=== PATIENT | female | born 1930 | race Caucasian/White ===

== ENCOUNTER 2016-10-08 22:52 | Observation (INO) | payer MEDICARE ==
[~2016-10-08] VITALS: Ht 160 cm; Wt 72.6 kg
[~2016-10-08 22:52] MED LIST: ACET325T9 PO; ALPR0.254 PO; ALPR1TAB2 PO; ASPI-482 PO; CYAN10005 PO; DOCU-27 PO; FERR325T72 PO; GABA-586 PO; LEVO50TA5 PO; MAGN400O4 PO; METO25TA9 PO; NITR100C PO; OXYC-323 PO; SENN-22 PO
[2016-10-08 23:38] LABS: BILIRUBIN,URINE SMALL (NEG); GLUCOSE,URINE NEGATIVE (NEG); NITRITE,URINE NEGATIVE (NEG); PROTEIN,URINE NEGATIVE (NEG-TRACE)
[2016-10-08 23:39] LABS: BASO % 1 % (0-3); EOS % 2 % (0-3); HEMATOCRIT 42.4 % (36.0-47.0); HEMOGLOBIN 13.9 g/dL (12.0-15.5); LYMPH # 0.8 x10^3/uL (1.0-4.8); LYMPH % 17 % (24-48); MEAN CORPUSCULAR HEMOGLOBIN 30 pg (25-35); MEAN CORPUSCULAR HGB CONC 33 g/dL (31-37); MEAN CORPUSCULAR VOLUME 91 fL (79-100); MONO % 6 % (0-9); NEUT % 75 % (31-73); PLATELET COUNT 139 x10^3/uL (140-400); RED BLOOD COUNT 4.65 x10^6/uL (3.50-5.40); RED CELL DISTRIBUTION WIDTH 15.4 % (11.5-14.5); WHITE BLOOD COUNT 4.8 x10^3/uL (4.0-11.0)
[2016-10-08 23:42] LABS: CALCIUM 9.2 mg/dL (8.5-10.1); CREATININE 0.9 mg/dL (0.6-1.0); GFR 59.2; POTASSIUM 3.7 mmol/L (3.5-5.1)
[2016-10-08 23:44] LABS: BACTERIA,URINE MANY /HPF (0-FEW); RBC,URINE OCC /HPF (0-2); SQUAMOUS EPITHELIAL CELL,UR MANY /LPF
[2016-10-08 23:48] LABS: ALBUMIN 3.4 g/dL (3.4-5.0); DIRECT BILIRUBIN 0.2 mg/dL (0.0-0.2); TOTAL BILIRUBIN 0.8 mg/dL (0.2-1.0); TOTAL PROTEIN 7.1 g/dL (6.4-8.2)
--- NOTE | 2016-10-09 00:08 | RAD ---
CT ABDOMEN/PELVIS Indication:severe abd pain after eating tonight, non contrast due to allergy, prior sent Reason: abdominal pain / Spl. Instructions: / History: Technique: Multiple contiguous axial images were obtained through the abdomen and pelvis. Coronal and sagittal reformations were created. Comparison:CT abdomen pelvis from 09/12/2004 Findings: The heart size is normal. The lung bases are clear. Evaluation of the abdominal viscera is limited in the absence of IV contrast.The liver and spleen are normal in size. The gallbladder is probably surgically absent. The pancreas, and adrenal glands are within normal limits. The kidneys are unremarkable. Calcifications superior pole of the left kidney. There is no abdominopelvic ascites. Abdominal aorta is normal in caliber with diffuse atheromatous calcification. The bowel loops are normal in caliber. The appendix is normal. Scattered stool throughout the colon. Diffuse sigmoid diverticulosis without acute diverticulitis. Urinary bladder is within normal limits. Bilateral hip arthroplasties causing streak artifacts limiting evaluation of pelvic structures. Postoperative changes of posterior spinal fusion involving L4 and L5 level. 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 Impression: No acute intra-abdominal or pelvic process detected. Spondylotic changes and multilevel disc degenerative changes Sigmoid diverticulosis without acute diverticulitis. Correlate clinically for constipation PQRS STATEMENT One or more of the following individualized dose reduction techniques were utilized for this study: 1.Automated exposure control 2.Adjustment of the mA and/or kV according to patient size 3.Use of iterative reconstruction technique Electronically signed by: Dominique Cerrato MD (Oct 09, 2016 00:07:05)
[2016-10-09] MEDS ORDERED: POLY17PO5 PO (00:18)
--- NOTE | 2016-10-09 00:18 | PHYS DOC ---
Past Medical History Past Medical History: Arthritis, GERD, Hypertension, TIA, UTI Additional Past Medical Histor: ANGINA BREAST CANCER DVT Past Surgical History: Cholecystectomy, Hysterectomy, Pacemaker Additional Past Surgical Histo: bladder lift, knee, back, pt poor historian, LUMPECTOMY Alcohol Use: None Drug Use: None Adult General Chief Complaint Chief Complaint: ABDOMINAL PAIN HPI HPI 86-year-old female presenting to the emergency department with generalized abdominal pain and dizziness when she stands up. Her pain is nonfocal, nonradiating mild worse prior to bowel movement and alleviated by having a bowel movement. Specific timing present. She also has associated lightheadedness when she stands up. She describes an episode where she had difficulty speaking for a few minutes and difficulty moving her legs. She denies it being unilateral. Currently she denies the symptoms. Review of Systems Review of Systems ROS negative for chest pain shortness of breath fevers chills cough. All other review of systems is negative unless otherwise noted in history of present illness. Allergies Allergies Allergies Coded Allergies Type Severity Reaction Last Updated Verified promethazine Allergy Severe Anxiety 08/30/15 Yes adhesive Allergy Intermediate Rash 08/31/15 Yes Iodinated Contrast Media - Oral and Adverse Reaction Intermediate FLUSHED 08/31 Yes Physical Exam Physical Exam Constitutional: Well developed, well nourished, no acute distress, non-toxic appearance. HENT: Normocephalic, atraumatic, bilateral external ears normal, oropharynx moist, no oral exudates, nose normal. [] Eyes: PERRLA, EOMI, conjunctiva normal, no discharge. Neck: Normal range of motion, no tenderness, supple, no stridor. [] Cardiovascular:Heart rate regular rhythm, no murmur [] Lungs & Thorax: Bilateral breath sounds clear to auscultation Abdomen: Soft nontender abdomen without rebound tenderness or guarding present. Negative McBurneys point. Negative Moreau sign. No ecchymosis present. Skin: Warm, dry, no erythema, no rash. Back: No tenderness, no CVA tenderness. [] Extremities: No tenderness, no cyanosis, no clubbing, ROM intact, no edema. [] Neurologic: Neuro exam: Mental status: Awake oriented and alert x3 Cranial nerves: Extraocular movements intact, eyebrows ayah bilaterally smile symmetric, uvula elevation, shoulder shrug intact, tongue protrusion normal DTRs: 2+ Sensation: equal and normal in all extremities Strength: 5/5 in upper and lower extremities bilaterally Psychologic: Affect normal, judgement normal, mood normal. [] Current Patient Data Vital Signs Vital Signs Date Time Temp Pulse Resp B/P Pulse Ox O2 Delivery O2 Flow Rate FiO2 10/09/16 00:27 82 16 182/75 96 Room Air 10/08/16 22:58 97.5 97.5 Lab Values Laboratory Tests Test 10/08/16 23:21 10/08/16 23:31 White Blood Count 4.8x10^3/uL (4.0-11.0) Red Blood Count 4.65x10^6/uL (3.50-5.40) Hemoglobin 13.9g/dL (12.0-15.5) Hematocrit 42.4% (36.0-47.0) Mean Corpuscular Volume 91fL (79-100) Mean Corpuscular Hemoglobin 30pg (25-35) Mean Corpuscular Hemoglobin Concent 33g/dL (31-37) Red Cell Distribution Width 15.4% (11.5-14.5) H Platelet Count 139x10^3/uL (140-400) L Neutrophils (%) (Auto) 75% (31-73) H Lymphocytes (%) (Auto) 17% (24-48) L Monocytes (%) (Auto) 6% (0-9) Eosinophils (%) (Auto) 2% (0-3) Basophils (%) (Auto) 1% (0-3) Neutrophils # (Auto) 3.6x10^3uL (1.8-7.7) Lymphocytes # (Auto) 0.8x10^3/uL (1.0-4.8) L Monocytes # (Auto) 0.3x10^3/uL (0.0-1.1) Eosinophils # (Auto) 0.1x10^3/uL (0.0-0.7) Basophils # (Auto) 0.0x10^3/uL (0.0-0.2) Sodium Level 143mmol/L (136-145) Potassium Level 3.7mmol/L (3.5-5.1) Chloride Level 108mmol/L (98-107) H Carbon Dioxide Level 29mmol/L (21-32) Anion Gap 6 (6-14) Blood Urea Nitrogen 11mg/dL (7-20) Creatinine 0.9mg/dL (0.6-1.0) Estimated GFR (Cockcroft-Gault) 59.2 Glucose Level 138mg/dL (70-99) H Lactic Acid Level 1.7mmol/L (0.4-2.0) Calcium Level 9.2mg/dL (8.5-10.1) Total Bilirubin 0.8mg/dL (0.2-1.0) Direct Bilirubin 0.2mg/dL (0.0-0.2) Aspartate Amino Transferase (AST) 28U/L (15-37) Alanine Aminotransferase (ALT) 21U/L (14-59) Alkaline Phosphatase 97U/L (46-116) Troponin I Quantitative < 0.017ng/mL (0.000-0.055) SV-Maj-R-Type Natriuretic Peptide 125pg/mL (0-449) Total Protein 7.1g/dL (6.4-8.2) Albumin 3.4g/dL (3.4-5.0) Lipase 135U/L (73-393) Thyroid Stimulating Hormone (TSH) 3.156uIU/mL (0.358-3.74) Urine Collection Type Unknown Urine Color Coby Urine Clarity Clear Urine pH 7.0 Urine Specific [employer] 1.015 Urine Protein Negativemg/dL (NEG-TRACE) Urine Glucose (UA) Negativemg/dL (NEG) Urine Ketones (Stick) Tracemg/dL (NEG) Urine Blood Negative (NEG) Urine Nitrite Negative (NEG) Urine Bilirubin Small (NEG) Urine Urobilinogen Dipstick 2.0mg/dL (0.2 mg/dL) Urine Leukocyte Esterase Small (NEG) Urine RBC Occ/HPF (0-2) Urine WBC 5-10/HPF (0-4) Urine Squamous Epithelial Cells Many/LPF Urine Bacteria Many/HPF (0-FEW) Urine Mucus Marked/LPF Laboratory Tests 10/08/16 23:21 Laboratory Tests 10/08/16 23:21 EKG EKG EKG shows sinus rhythm with a regular rate. [place] mildly leftward. Intervals within normal limits. ST segments congruent. [] Radiology/Procedures Radiology/Procedures [address] [place] [address] IMAGING REPORT Signed PATIENT: LILIA ZIMMERMAN ACCOUNT: [id number] : 1930 LOCATION: ER AGE: 86 SEX: F EXAM STATUS: REG ER ORD. PHYSICIAN: KARI LAKHANI MD REASON: abdominal pain PROCEDURE: ABDOMEN PELVIS WO CONTRAST CT ABDOMEN/PELVIS Indication:severe abd pain after eating tonight, non contrast due to allergy, prior sent Reason: abdominal pain / Spl. Instructions: / History: Technique: Multiple contiguous axial images were obtained through the abdomen and pelvis. Coronal and sagittal reformations were created. Comparison:CT abdomen pelvis from 09/12/2004 Findings: The heart size is normal. The lung bases are clear. Evaluation of the abdominal viscera is limited in the absence of IV contrast.The liver and spleen are normal in size. The gallbladder is probably surgically absent. The pancreas, and adrenal glands are within normal limits. The kidneys are unremarkable. Calcifications superior pole of the left kidney. There is no abdominopelvic ascites. Abdominal aorta is normal in caliber with diffuse atheromatous calcification. The bowel loops are normal in caliber. The appendix is normal. Scattered stool throughout the colon. Diffuse sigmoid diverticulosis without acute diverticulitis. Urinary bladder is within normal limits. Bilateral hip arthroplasties causing streak artifacts limiting evaluation of pelvic structures. Postoperative changes of posterior spinal fusion involving L4 and L5 level. 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 Impression: No acute intra-abdominal or pelvic process detected. Spondylotic changes and multilevel disc degenerative changes Sigmoid diverticulosis without acute diverticulitis. Correlate clinically for constipation PQRS STATEMENT One or more of the following individualized dose reduction techniques were utilized for this study: 1.Automated exposure control 2.Adjustment of the mA and/or kV according to patient size 3.Use of iterative reconstruction technique Electronically signed by: Dominique Cerrato MD (Oct 09, 2016 00:07:05) DICTATED and SIGNED BY: DOMINIQUE CERRATO MD DATE: 10/09/16 0007 CC: LAURA SWANN MD; KARI LAKHANI MD ~ Head CT negative. [] Course & Med Decision Making Course & Med Decision Making Pertinent Labs and Imaging studies reviewed. (See chart for details) [] 56-year-old female presenting to the emergency department today with generalized abdominal pain and neurologic complaints of difficulty moving her legs and difficulty speaking for a few minutes which resolved. On evaluation the patient's vital signs showed that she was afebrile with mild hypertension. Heart rate normal. Physical exam showed a normal neurologic exam and nontender abdomen. Blood work is obtained which showed normal CBC urinalysis not suggestive of infection and a chemistry panel that was unremarkable. CT abdomen and pelvis showed no acute pathology. Given the patient's temporary neurologic complaints the patient was admitted for MRI and neurology consultation. Dragon Disclaimer Dragon Disclaimer This electronic medical record was generated, in whole or in part, using a voice recognition dictation system. Departure Departure Impression: Primary Impression: Abdominal pain Disposition: HOME, SELF-CARE Condition: STABLE Referrals: LAURA SWANN MD (PCP) Patient Instructions: Abdominal Pain (Nonspecific) Additional Instructions: Thank you for allowing us to participate in your care today. Followup with your primary care physician in 3 days if your symptoms do not improve. If you do not have a primary care provider you can ask for a list of our primary care providers. Return to the emergency department you have any new or concerning findings. This should be evaluated by the primary care physician and any necessary consulting services for continued management within a few days after discharge. Return to emergency room if you have any new or concerning symptoms including but not limited to fever, chills, nausea, vomiting, intractable pain, any new rashes, chest pain, shortness of air, uncontrolled bleeding, difficulty breathing, and/or vision loss. Scripts Polyethylene Glycol 3350 (Miralax)17 Gm Powd.pack1 Packet PO DAILY #15 PACKET Ref 3 Prov:KARI LAKHANI MD 10/09/16 KARI LAKHANI MD Oct 09, 2016 00:18
[2016-10-09] MEDS ORDERED: MORPHINE SULFATE 2 MG/ML DISP.SYRIN. IV PRN (01:00)
[2016-10-09] MEDS ORDERED: ONDANSETRON PF 4 MG/2 ML VIAL. IV PRN ×2 (01:00→09:02)
--- NOTE | 2016-10-09 01:30 | RAD ---
INDICATION: Dizziness and difficulty speaking. COMPARISON: February 20, 2016 TECHNIQUE: Axial, noncontrast CT images obtained through the head. One or more of the following individualized dose reduction techniques were utilized for this examination: 1. Automated exposure control; 2. Adjustment of the mA and/or kV according to patient size; 3. Use of iterative reconstruction technique. FINDINGS: No acute intracranial process is identified, specifically no acute blood products, midline shift, mass effect or extra-axial fluid collections. Ventricles and sulci appear appropriate for patient's age. Basilar cisterns are maintained. Diffuse periventricular and subcortical white matter low attenuation is re- demonstrated, similar to the previous exam and likely sequelae of chronic microvascular ischemia. The visualized paranasal sinuses are clear. Mastoid air cells are clear. No calvarial fracture is present. Overlying scalp is intact. IMPRESSION: No acute intracranial process or change from prior exam. Electronically signed by: Radha Rowland (Oct 09, 2016 01:28:36)
--- NOTE | 2016-10-09 02:08 | ACF ---
Admission Forms Criteria ABDOMINAL PAIN Clinical Indications for Admission to Inpatient Care (Place 'X' for any and all applicable criteria): Admission is indicated for ANY ONE of the following(1)(2)(3)(4)(5): [X]I. Inpatient admission required rather than observation care (Also use Abdominal Pain: Observation Care, as appropriate) because of ANY ONE of the following: [X]a) Severe pain requiring acute inpatient management [ ]b) Identification of etiology/finding that requires inpatient care (eg, aortic dissection, free air) [ ]c) Absent bowel sounds with complete ileus(6) [ ]d) Suspected toxic megacolon [ ]e) Severe electrolyte abnormalities requiring inpatient care [ ]f) High fever or infection requiring inpatient admission as indicated by ANY ONE of following(7)(8): [ ] i) Appropriate outpatient or observational care antimicrobial treatment unavailable, not effective, or not feasible [ ] ii) Documented bacteremia [ ] iii) Temperature > 104.9 degrees F (oral) [ ] iv) T >103.1 F (oral) or < 96.8 F(rectal) that does not respond to all emergency treatment measures [ ]g) Signs of intestinal obstruction [B] [ ]h) Hemodynamic instability [ ]i) IV fluid to replace significant ongoing losses (greater than 3 L/m2 per day) (12)(13) [ ]j) Percutaneous or open drainage (eg, abscess, biliary tract ) procedures [ ]k) Parenteral nutrition regimen that must be implemented on inpatient basis [ ]l) Other condition,treatment or monitoring requiring inpatient admission. [ ]II. Peritoneal signs present [ ]III. Surgery needed that cannot be performed on an ambulatory basis. [ ]IV. Evaluation requires patient to not eat or drink for extended period ( eg, more than 24 hours). [ ]V. Contraindications and/or Inappropriate clinical situations for Observational Care in patients with abdominal pain, when ANY ONE of the following is required: [ ]a) Thorough evaluation is required to prevent catastrophic events due to delays in diagnosing (e.g.Mesenteric ischemia) 1,3 [ ]b) Patient with severe pathology or with chronic symptoms unlikely to improve in the ED stay (3) [ ]. General contraindications and/or Inappropriate clinical situations for Observational Care in patients with abdominal pain, when ANY ONE of the following is required: [ ]a) Prediction of prolongation of LOS based on ANY ONE of the following may be considered as a contraindication for observational care 2, 3, 4, 5, 6, 7, 8, 9, 10, 11 [ ]i) Age > 65 yrs. [ ]ii) Patient arriving by ambulance [ ]iii) Patient with high acuity [ ]iv) Patient requiring vital sign monitoring [ ]v) Patient on IV medication [ ]b) Systolic blood pressures 180mmHg 3,12 [ ]c) Patient with altered mental status including delirium and other alteration of consciousness, (3) [ ]d) Patient whose discharge disposition will be to a halfway home or rehabilitation home should not be managed in Emergency Department Observation Unit. CMS rule requires 3 days hospital stay before such placement.3,13 [ ]e) Patient with failure to thrive due to broad array of etiologies 3,16,17 [ ]f) Inability to ambulate 3,14 Extended stay beyond goal length of stay may be needed for(2)(3): [ ]a) Persistent abdominal pain with suspected intra-abdominal process [ ]b) Diagnosed condition requiring continued stay (e.g., pancreatitis, complicated diverticulitis) [ ]c) Surgery (e.g., colectomy) The original [facility] content created by [employer] has been revised. The portions of the content which have been revised are identified through the use of italic text or in bold, and [facility] has neither reviewed nor approved the modified material.All other unmodified content is copyright [employer]. Please see references footnoted in the original [facility] edition 2016 Admission Criteria Met?: Yes SHAHIDA GILLILAND Oct 09, 2016 02:08
[2016-10-09] MEDS ORDERED: METO25TA4 PO (02:47)
[2016-10-09] MEDS ORDERED: TRIA15CR TOP (02:47)
[2016-10-09] MEDS ORDERED: MIRT15TA3 PO (02:47)
[2016-10-09 03:00] VITALS: BP 152/83
--- NOTE | 2016-10-09 06:06 | EKG ---
[facility] [address] [place] [address] Test Date: 2016-10-08 Test Time: 23:00:41 Pat Name: LILIA ZIMMERMAN Department: Room: [facility] Gender: F [employer] Manager: : 1930 Requested By: KARI LAKHANI Order Number: [id number] Reading MD: Tito Cotter Measurements Intervals [place] Rate: 65 P: 44 FL: 174 QRS: 13 QRSD: 72 T: 67 QT: 422 QTc: 440 Interpretive Statements SINUS RHYTHM Electronically Signed On 10-15-2016 11:20:46 FILM PRINTER by Tito Cotter
[2016-10-09 07:00] VITALS: BP 160/76
[2016-10-09] MEDS ORDERED: ACETAMINOPHEN 325 MG TABLET. PO PRN (09:15)
[2016-10-09] MEDS ORDERED: ALPRAZOLAM 0.25 MG TABLET PO PRN ×2 (09:15→09:38)
[2016-10-09] MEDS ORDERED: ACETAMINOPHEN 500 MG TABLET PO PRN (09:15)
[2016-10-09] MEDS ORDERED: LABETALOL 20 MG/4 ML DISP.SYRIN. IVP PRN (09:15)
[2016-10-09] MEDS ORDERED: OXYCODONE/APAP 5/325 TABLET. PO PRN (09:15)
[2016-10-09] MEDS ORDERED: MIRTAZAPINE 15 MG TABLET PO SCH (10:00)
[2016-10-09] MEDS ORDERED: CYANOCOBALAMIN (VITAMIN B-12) 1,000 MCG TABLET. PO SCH (10:00)
[2016-10-09] MEDS ORDERED: GABAPENTIN 300 MG CAPSULE. PO SCH (10:00)
[2016-10-09] MEDS ORDERED: POLYETHYLENE GLYCOL 3350 17 GM PACKET. PO SCH (10:00)
[2016-10-09] MEDS ORDERED: SENNOSIDES/DOCUSATE 8.6/50MG TABLET. PO SCH (10:00)
[2016-10-09] MEDS ORDERED: MAGNESIUM HYDROXIDE 2,400 MG/30 ML ORAL.SUSP. PO SCH (10:00)
[2016-10-09] MEDS ORDERED: DOCUSATE SODIUM 100 MG CAPSULE PO SCH (10:00)
[2016-10-09] MEDS ORDERED: METOPROLOL TART IMMED RELEASE 25 MG TABLET PO SCH (10:00)
--- NOTE | 2016-10-09 10:50 | PDOC2 ---
NEUROLOGY CONSULT Date of Admission Date of Admission DATE: 10/09/16 TIME: 10:38 Reason for Consult Reason for Consult: Weakness Referring Physician Referring Physician: Dr. Quijano PCP: Dr. oNe Source Source: Chart review, Patient History of Present Illness History of Present Illness The patient is an 86-year-old right-handed female who had abdominal pain yesterday and while sitting on the toilet became generally weak and had trouble speaking. She yelled out for her son to help.She feels much better now. She has had several episodes of syncope in the past. Indeed, she was lightheaded and diaphoretic while sitting on the toilet. She has as a history of pacemaker placement prior to having the syncopal episodes. There is no history of stroke, seizure activity, or significant head injury.She was here 8 months ago with syncope and had negative carotid Dopplers and pacemaker check was fine Past Medical History Cardiovascular: Other ( left leg deep venous thrombosis) GI: Constipation, GERD, Other ( occasional dysphagia, esophagitis and varices charted but patient denies, diarrhea) Heme/Onc: Cancer ( left breast) Past Surgical History Past Surgical History: Pacemaker, Cholecystectomy, Total hip replacement, Total knee replacement, Hysterectomy, Other ( left breast lumpectomy, bladder prolapse, lumbar, left leg vein ablation) Family History Family History: No pertinent hx ( parents of old age) Social History Social History , son lives with her, no alcohol or tobacco Current Medications Current Medications Current Medications Ondansetron HCl (Zofran) 4 mg PRN Q8HRS PRN IV NAUSEA/VOMITING; Start 10/09/16 at 01:00; Stop 10/09/16 at 09:04; Status DC Morphine Sulfate 2 mg PRN Q2HR PRN IV SEVERE PAIN; Start 10/09/16 at 01:00; Stop 10/10/16 at 00:59 Ondansetron HCl (Zofran) 4 mg PRN Q6HRS PRN IV NAUSEA/VOMITING; Start 10/09/16 at 09:02 Acetaminophen (Tylenol) 500 mg PRN Q6HRS PRN PO MILD PAIN / TEMP Last administered on 10/09/16t 10:28; Start 10/09/16 at 09:15 Labetalol HCl (Normodyne) 10 mg PRN Q2HR PRN IVP HYPERTENSION, SEE COMMENTS; Start 10/09/16 at 09:15 Acetaminophen (Tylenol) 1 mg PRN Q6HRS PRN PO PAIN; Start 10/09/16 at 09:15; Status UNV Alprazolam (Xanax) 0.25 mg QID PRN PO ANXIETY / AGITATION; Start 10/09/16 at 09 :15; Stop 10/09/16 at 09:38; Status DC Cyanocobalamin (Vitamin B-12) 1,000 mcg DAILY PO Last administered on t 10:00; Start 10/09/16 at 10:00 Docusate Sodium (Colace) 100 mg BID PO ; Start 10/09/16 at 10:00 Ferrous Sulfate (Feosol) 325 mg BID66 PO ; Start 10/09/16 at 18:00 Gabapentin (Neurontin) 300 mg BID PO Last administered on 10/09/16t 10:00; Start 10/09/16 at 10:00 Magnesium Hydroxide (Milk Of Magnesia) 2,400 mg BID PO ; Start 10/09/16 at 10:00 Metoprolol Tartrate (Lopressor) 25 mg DAILY PO Last administered on 10/09/16t 10:00; Start 10/09/16 at 10:00 Mirtazapine (Remeron) 15 mg DAILY PO ; Start 10/09/16 at 10:00 Oxycodone/ Acetaminophen (Percocet 5/325) 1 tab PRN TID PRN PO pain; Start 08/15 at 09:15 Polyethylene Glycol (miraLAX PACKET) 17 gm DAILY PO ; Start 10/09/16 at 10:00 Senna/Docusate Sodium (Senna Plus) 1 tab BID PO ; Start 10/09/16 at 10:00 Alprazolam (Xanax) 0.25 mg PRN QID PRN PO ANXIETY / AGITATION; Start 10/09/16 at 09:38 Active Scripts Active Miralax (Polyethylene Glycol 3350) 17 Gm Powd.pack 1 Packet PO DAILY Senna-Time S Tablet (Sennosides/Docusate Sodium) 1 Each Tablet 1 Tab PO BID Milk Of Magnesia (Magnesium Hydroxide) 400 Mg/5 Ml Oral.susp 2,400 Mg PO BID Gabapentin 300 Mg Capsule 300 Mg PO BID Feosol (Ferrous Sulfate) 325 Mg Tablet 325 Mg PO BID66 Vitamin B-12 (Cyanocobalamin (Vitamin B-12)) 1,000 Mcg Tablet 1,000 Mcg PO DAILY Colace (Docusate Sodium) 100 Mg Capsule 100 Mg PO BID Percocet 5-325 Mg Tablet (Oxycodone/Acetaminophen) 1 Each Tablet 1-2 Tab PO Q4- 6HRS Reported Metoprolol Tartrate 25 Mg Tablet 25 Mg PO DAILY Mirtazapine 15 Mg Tablet 15 Mg PO DAILY Triamcinolone Acetonide 0.5% Cream (Triamcinolone Acetonide) 15 Gm Cream..g. 15 Gm TOP Tylenol (Acetaminophen) 325 Mg Tablet 1-2 Tab PO PRN Q6HRS PRN Alprazolam 0.25 Mg Tablet 1 Tab PO QID PRN Allergies Allergies: Coded Allergies: promethazine (Verified Allergy, Severe, Anxiety, 08/30/15) Penicillins (Verified Allergy, Intermediate, 10/09/16) adhesive (Verified Allergy, Intermediate, Rash, 08/31/15) ciprofloxacin (Verified Allergy, Intermediate, 10/09/16) Iodinated Contrast Media - Oral and (Verified Adverse Reaction, Intermediate, FLUSHED, 08/31/15) ROS Review of System Negative for fevers, chills, weight loss, shortness of breath, chest pain, indigestion, hematochezia, melena, dysuria. Full 14-point review systems is negative. Physical Exam Physical Examination PHYSICAL EXAMINATION: Vital signs: see above. General appearance is normal and in no acute distress. HEENT: Normocephalic and nontraumatic. Eyes, nose, ears, and throat are unremarkable. Neck is supple. No lymphadenopathy. No bruits are heard over the carotid artery. No crepitus. NEUROLOGICAL EXAMINATION: Mental Status Examination: Alert. Oriented to time, place, and person. Answers questions and follows commends. Pupils are equal round and reactive to light and accommodation. Extraocular movements are intact. Visual field exam shows no defect on the direct confrontation. No motor or sensory deficits on the facial exam. Uvula in the midline and the soft palate elevated symmetrically. No deviation of the tongue to any direction. Gross hearing is normal. Shoulder shrug normal. Muscle tone is normal. Muscle strength is 5. Deep tendon reflexes are 2+ all around. Plantar reflex is with flexion response bilaterally. Wyygob-ue-pvsi test performance is accurate. Alternative movements are accurate. Gait is arthritic, she usually gets around with a cane or walker. Sensory exam shows no deficits. No cerebellar signs are elicited. Vitals VITALS Vital Signs Date Time Temp Pulse Resp B/P Pulse Ox O2 Delivery O2 Flow Rate FiO2 10/09/16 10:00 78 160/76 10/09/16 07:00 98.1 20 92 Room Air 98.1 Labs Labs Laboratory Tests Test 10/08/16 23:21 10/08/16 23:31 White Blood Count 4.8x10^3/uL (4.0-11.0) Red Blood Count 4.65x10^6/uL (3.50-5.40) Hemoglobin 13.9g/dL (12.0-15.5) Hematocrit 42.4% (36.0-47.0) Mean Corpuscular Volume 91fL (79-100) Mean Corpuscular Hemoglobin 30pg (25-35) Mean Corpuscular Hemoglobin Concent 33g/dL (31-37) Red Cell Distribution Width 15.4% (11.5-14.5) Platelet Count 139x10^3/uL (140-400) Neutrophils (%) (Auto) 75% (31-73) Lymphocytes (%) (Auto) 17% (24-48) Monocytes (%) (Auto) 6% (0-9) Eosinophils (%) (Auto) 2% (0-3) Basophils (%) (Auto) 1% (0-3) Neutrophils # (Auto) 3.6x10^3uL (1.8-7.7) Lymphocytes # (Auto) 0.8x10^3/uL (1.0-4.8) Monocytes # (Auto) 0.3x10^3/uL (0.0-1.1) Eosinophils # (Auto) 0.1x10^3/uL (0.0-0.7) Basophils # (Auto) 0.0x10^3/uL (0.0-0.2) Sodium Level 143mmol/L (136-145) Potassium Level 3.7mmol/L (3.5-5.1) Chloride Level 108mmol/L (98-107) Carbon Dioxide Level 29mmol/L (21-32) Anion Gap 6 (6-14) Blood Urea Nitrogen 11mg/dL (7-20) Creatinine 0.9mg/dL (0.6-1.0) Estimated GFR (Cockcroft-Gault) 59.2 Glucose Level 138mg/dL (70-99) Lactic Acid Level 1.7mmol/L (0.4-2.0) Calcium Level 9.2mg/dL (8.5-10.1) Total Bilirubin 0.8mg/dL (0.2-1.0) Direct Bilirubin 0.2mg/dL (0.0-0.2) Aspartate Amino Transf (AST/SGOT) 28U/L (15-37) Alanine Aminotransferase (ALT/SGPT) 21U/L (14-59) Alkaline Phosphatase 97U/L (46-116) Troponin I Quantitative < 0.017ng/mL (0.000-0.055) LA-Ozr-O-Type Natriuretic Peptide 125pg/mL (0-449) Total Protein 7.1g/dL (6.4-8.2) Albumin 3.4g/dL (3.4-5.0) Lipase 135U/L (73-393) Thyroid Stimulating Hormone (TSH) 3.156uIU/mL (0.358-3.74) Urine Collection Type Unknown Urine Color Coby Urine Clarity Clear Urine pH 7.0 Urine Specific [place] 1.015 Urine Protein Negativemg/dL (NEG-TRACE) Urine Glucose (UA) Negativemg/dL (NEG) Urine Ketones (Stick) Tracemg/dL (NEG) Urine Blood Negative (NEG) Urine Nitrite Negative (NEG) Urine Bilirubin Small (NEG) Urine Urobilinogen Dipstick 2.0mg/dL (0.2 mg/dL) Urine Leukocyte Esterase Small (NEG) Urine RBC Occ/HPF (0-2) Urine WBC 5-10/HPF (0-4) Urine Squamous Epithelial Cells Many/LPF Urine Bacteria Many/HPF (0-FEW) Urine Mucus Marked/LPF Laboratory Tests Test 10/08/16 23:21 10/08/16 23:31 White Blood Count 4.8x10^3/uL (4.0-11.0) Red Blood Count 4.65x10^6/uL (3.50-5.40) Hemoglobin 13.9g/dL (12.0-15.5) Hematocrit 42.4% (36.0-47.0) Mean Corpuscular Volume 91fL (79-100) Mean Corpuscular Hemoglobin 30pg (25-35) Mean Corpuscular Hemoglobin Concent 33g/dL (31-37) Red Cell Distribution Width 15.4% (11.5-14.5) Platelet Count 139x10^3/uL (140-400) Neutrophils (%) (Auto) 75% (31-73) Lymphocytes (%) (Auto) 17% (24-48) Monocytes (%) (Auto) 6% (0-9) Eosinophils (%) (Auto) 2% (0-3) Basophils (%) (Auto) 1% (0-3) Neutrophils # (Auto) 3.6x10^3uL (1.8-7.7) Lymphocytes # (Auto) 0.8x10^3/uL (1.0-4.8) Monocytes # (Auto) 0.3x10^3/uL (0.0-1.1) Eosinophils # (Auto) 0.1x10^3/uL (0.0-0.7) Basophils # (Auto) 0.0x10^3/uL (0.0-0.2) Sodium Level 143mmol/L (136-145) Potassium Level 3.7mmol/L (3.5-5.1) Chloride Level 108mmol/L (98-107) Carbon Dioxide Level 29mmol/L (21-32) Anion Gap 6 (6-14) Blood Urea Nitrogen 11mg/dL (7-20) Creatinine 0.9mg/dL (0.6-1.0) Estimated GFR (Cockcroft-Gault) 59.2 Glucose Level 138mg/dL (70-99) Lactic Acid Level 1.7mmol/L (0.4-2.0) Calcium Level 9.2mg/dL (8.5-10.1) Total Bilirubin 0.8mg/dL (0.2-1.0) Direct Bilirubin 0.2mg/dL (0.0-0.2) Aspartate Amino Transf (AST/SGOT) 28U/L (15-37) Alanine Aminotransferase (ALT/SGPT) 21U/L (14-59) Alkaline Phosphatase 97U/L (46-116) Troponin I Quantitative < 0.017ng/mL (0.000-0.055) GH-Aom-S-Type Natriuretic Peptide 125pg/mL (0-449) Total Protein 7.1g/dL (6.4-8.2) Albumin 3.4g/dL (3.4-5.0) Lipase 135U/L (73-393) Thyroid Stimulating Hormone (TSH) 3.156uIU/mL (0.358-3.74) Urine Collection Type Unknown Urine Color Coby Urine Clarity Clear Urine pH 7.0 Urine Specific [place] 1.015 Urine Protein Negativemg/dL (NEG-TRACE) Urine Glucose (UA) Negativemg/dL (NEG) Urine Ketones (Stick) Tracemg/dL (NEG) Urine Blood Negative (NEG) Urine Nitrite Negative (NEG) Urine Bilirubin Small (NEG) Urine Urobilinogen Dipstick 2.0mg/dL (0.2 mg/dL) Urine Leukocyte Esterase Small (NEG) Urine RBC Occ/HPF (0-2) Urine WBC 5-10/HPF (0-4) Urine Squamous Epithelial Cells Many/LPF Urine Bacteria Many/HPF (0-FEW) Urine Mucus Marked/LPF Images Images Head CT negative Assessment/Plan Assessment/Plan Impression: Vasovagal syncope elicited by abdominal pain, no evidence of stroke, seizure, transient ischemic attack, or other neurological disease. Recommendations: Observation No other neurological tests required, in particular she can't have an MRI anyway because of the pacemaker Discharge later today if stable I defer to internal medicine whether a repeat pacemaker check is required, I doubt this Follow-up with neurology as needed Thank you for letting me help with the patient's care. VICTOR HUGO MCALLISTER MD Oct 09, 2016 10:50
[2016-10-09 11:00] VITALS: BP 151/76
--- NOTE | 2016-10-09 13:28 | PDOC ---
Provider Note Provider Note 23 hr admit and dc note done. JOb # [id number] OBED VELASQUEZ MD Oct 09, 2016 13:28
[2016-10-09] MEDS ORDERED: FERROUS SULFATE 325 MG TABLET PO SCH (18:00)
--- NOTE | 2016-10-11 17:11 | SSS ---
ADMIT DATE: 10/09/2016 23-HOUR ADMIT AND DISCHARGE SUMMARY CHIEF COMPLAINT: Dizziness, abdominal pain. HISTORY OF PRESENT ILLNESS: The patient is an 86-year-old female who knows and speaks Sami, admitted because of abdominal pain, had syncope-like symptoms and dizziness after the abdominal pain. She had some diarrhea, maybe some emesis. She now feels fine. Because of syncope, she was admitted overnight through the emergency room. CAT scan of the head is negative. CAT scan of the abdomen and pelvis is negative. Vital signs are stable. Lab work is negative. Patient does not use any assistive device to ambulate at home. Blood pressure was on the high side though, but that has since resolved. Most likely there is a ____ syncope from abdominal pain, vasovagal, but no other active issues right now in terms of the abdomen. No emesis, no nausea or vomiting, no diarrhea, tolerating p.o. diet fine. PAST MEDICAL HISTORY: Hypertension. PAST SURGICAL HISTORY: Noncontributory. SOCIAL HISTORY: No smoking, no alcohol, no street drugs, lives at home with family. ALLERGIES: MULTIPLE ON ORAL PENICILLIN, ADHESIVE, CIPROFLOXACIN, PROMETHAZINE. REVIEW OF SYSTEMS: All 14-point systems reviewed, denies. PHYSICAL EXAMINATION: GENERAL: Awake, alert and oriented x 3, not in acute respiratory distress. VITAL SIGNS: Stable. HEENT: Unremarkable. LUNGS: Clear to auscultation bilaterally. HEART: Normal regular rate and rhythm. No murmurs, rubs or gallops. ABDOMEN: Soft, flabby and nontender. Normoactive bowel sounds. GENITALIA: Appropriate for age. EXTREMITIES: Negative edema. Pulses full and equal. ____. NEUROLOGIC: GCS 15, alert and oriented x 3; no focal neuro deficits; DTRs +2; Babinski downward going bilaterally; no sensory deficit. PSYCHIATRIC: Appropriate mood and affect; normal insight and judgment. ASSESSMENT AND PLAN: 1. Vasovagal syncope. 2. Dizziness secondary to above. 3. Abdominal pain, no acute pathology. 4. Hypertension, controlled. PLAN OF CARE: We added labetalol. PT/OT has been cleared by therapy. Will go home today on no new medications, counseled about not standing too quickly, keeping self-hydrated. Counseled and educated about geriatric patients having sensitive autonomic immune system. She understands. No new medications. DISPOSITION: Home. CONSULTS PERFORMED: None. PROCEDURES PERFORMED: None. Patient stayed 23 hours observation status. OBED VELASQUEZ MD DR: /nts JOB#: [id number] / [id number]
== END 2016-10-09 15:40 | disposition home or self-care (01) ==
LOC: ER 22:52 → 5 NORTH 10-09 00:42
PROVIDERS: ADMIT Internal Medicine; ATTEND Internal Medicine
DX: R10.84 Generalized abdominal pain (principal); R55 Syncope and collapse; R42 Dizziness and giddiness; I10 Essential (primary) hypertension; K21.9 Gastro-esophageal reflux disease without esophagitis; Z86.73 Personal history of transient ischemic attack (TIA), and cerebral infarction without residual deficits; Z86.718 Personal history of other venous thrombosis and embolism; Z87.440 Personal history of urinary (tract) infections; Z95.0 Presence of cardiac pacemaker; Z96.659 Presence of unspecified artificial knee joint; K59.00 Constipation, unspecified
CPT/HCPCS: 36415; 70450; 74176; 80048; 80076; 81001; 83605; 83690; 83880; 84443; 84484; 85027; 87086; 93005; 99285; G0378; G0379